=== PATIENT | female | born 1985 | race Caucasian/White ===

== ENCOUNTER 2017-01-25 14:08 | Emergency (ER) | payer OTHER ==
[2017-01-25 15:05] LABS: BASOPHIL 0.3 % (0-2); EOSINOPHIL 0.5 % (0-5); HCT 41.3 % (37.0-47.0); HGB 13.9 g/dl (12.5-16.0); LYMPHOCYTE 9.7 % (15-48); MCH 33.8 pg (25.0-31.0); MCHC 33.7 g/dL (32.0-36.0); MCV 100.5 fL (78.0-100.0); MPV 10.2 fL (6.0-9.5); NEUTROPHIL 85.5 % (41-80); PLT 230 K/uL (150-400); RBC 4.11 M/uL (4.20-5.40); RDW 11.8 % (11.5-14.0); WBC 13.8 K/uL (4.0-10.5)
[2017-01-25 15:21] LABS: CREATININE 0.8 mg/dL (0.5-1.0)
[2017-01-25 15:53] LABS: AMPHETAMINES POSITIVE (NEGATIVE); BARBITURATES NEGATIVE (NEGATIVE); BENZODIAZEPINES POSITIVE (NEGATIVE); COCAINE NEGATIVE (NEGATIVE); MARIJUANA (THC) NEGATIVE (NEGATIVE); METHADONE NEGATIVE (NEGATIVE); TRICYCLIC ANTIDEPRESSANT NEGATIVE (NEGATIVE)
== END 2017-01-25 16:18 | disposition home or self-care (01) ==
LOC: FER 14:08
PROVIDERS: Emergency Medicine
DX: T40.1X1A Poisoning by heroin, accidental (unintentional), initial encounter (principal); F15.90 Other stimulant use, unspecified, uncomplicated; F13.90 Sedative, hypnotic, or anxiolytic use, unspecified, uncomplicated; F17.210 Nicotine dependence, cigarettes, uncomplicated; Z88.0 Allergy status to penicillin; Z88.5 Allergy status to narcotic agent
CPT/HCPCS: 36415; 80048; 80305; 84484; 85025; 92950; 93005; J2310